=== PATIENT | female | born 1995 | race African-American/Black ===

== ENCOUNTER 2019-09-18 07:50 | Emergency (ER) | payer SELFPAY ==
[~2019-09-18] VITALS: Ht 165.1 cm; Wt 65.8 kg
[2019-09-18] MEDS ORDERED: OLANZAPINE 10 MG VIAL IM ONE ×2 (08:00→08:05)
[2019-09-18] MEDS ORDERED: LORAZEPAM INJ 2 MG/ML VIAL IM ONE (08:00)
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
[2019-09-18] MEDS ORDERED: LORAZEPAM INJ 2 MG/ML VIAL ONE (08:05)
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
[2019-09-18 08:20] LABS: BASOPHILS # (AUTO) 0.1 /CMM (0.0-0.2); BASOPHILS % (AUTO) 0.7 % (0.0-2.0); EOSINOPHILS % (AUTO) 1.3 % (0.0-6.0); HEMATOCRIT 40 % (33-45); HEMOGLOBIN 13.4 g/dL (11.5-14.8); LYMPHOCYTES # (AUTO) 3.5 /CMM (0.8-4.8); LYMPHOCYTES % (AUTO) 41.6 % (20.0-44.0); MEAN CORPUSCULAR HGB CONC 34 g/dl (31.0-36.0); MEAN CORPUSCULAR VOLUME 94 fL (82-100); MONOCYTES # (AUTO) 0.6 /CMM (0.1-1.30); MONOCYTES % (AUTO) 6.9 % (2.0-12.0); NEUTROPHILS # (AUTO) 4.2 /CMM (1.8-8.9); NEUTROPHILS % (AUTO) 49.5 % (43.0-81.0); PLATELET COUNT (AUTO) 227 /CMM (150-450); RED BLOOD CELL COUNT(AUTO) 4.27 MIL/uL (4.0-5.2); WHITE BLOOD COUNT (AUTO) 8.5 K/uL (4.3-11.0)
[2019-09-18 08:27] LABS: CALCIUM, SERUM 8.9 mg/dL (8.5-10.1); CREATININE 1.1 mg/dL (0.6-1.3); POTASSIUM 3.4 mmol/L (3.5-5.1)
[2019-09-18 08:40] LABS: ALBUMIN 3.8 g/dL (3.4-5.0); BILIRUBIN,DIRECT 0.1 mg/dL (0.0-0.2); BILIRUBIN,TOTAL 0.3 mg/dL (0.2-1.0); SALICYLATE 1.2 mg/dL (2.8-20.0); TOTAL PROTEIN, SERUM 7.5 g/dL (6.4-8.2)
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
--- NOTE | 2019-09-18 10:00 | NUR ---
POLICE OFFICERS LEFT A BUSINESS CARD, TO GIVE THEM A CALL BACK ONCE PATIENT IS AWAKE.
--- NOTE | 2019-09-18 10:36 | NUR ---
PATIENT ASLEEP, NO DISTRESS NOTED. VITALS STABLE.
--- NOTE | 2019-09-18 14:41 | NUR ---
PATIENT ASLEEP, NO DISTRESS NOTED.
--- NOTE | 2019-09-18 19:00 | NUR ---
Patient asleep, no distress noted.
--- NOTE | 2019-09-18 19:22 | NUR ---
endorsed to geena trujillo.
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
--- NOTE | 2019-09-18 19:34 | NUR ---
CALLED AND UPDATED [employer] THAT PT IS AWAKE AND WILLING TO SPEAK TO OFFICERS. WAS TOLD THEY WILL SEND OFFICERS TO THE ED TO INTERVIEW PATIENT.
--- NOTE | 2019-09-18 20:33 | NUR ---
[employer] AT BEDSIDE
--- NOTE | 2019-09-18 20:38 | NUR ---
OFFICER LOLA [id number] AND OFFICER ARCENIO [id number] AT BEDSIDE, PT REFUSING TO ANSWER QUESTIONS. REQUESTING TO CALL BACK [employer] ONCE AWAKE AND WILLING TO ANSWER QUESTIONS.
--- NOTE | 2019-09-18 21:44 | NUR ---
PT AWAKE, DOES NOT WANT TO SPEAK OR COOPERATE. DENIES PAIN, RR EVEN AND UNLABORED, VSS.
[2019-09-18 23:02] VITALS: BP 121/75
--- NOTE | 2019-09-18 23:02 | NUR ---
Patient discharged to home in stable condition. Written and verbal after care instructions given. Patient refused to sign.
== END 2019-09-18 23:03 | disposition home or self-care (01) ==
LOC: EDBD 07:53 → ER 07:53
DX: F29 Unspecified psychosis not due to a substance or known physiological condition (principal); F19.10 Other psychoactive substance abuse, uncomplicated; R00.0 Tachycardia, unspecified; R45.1 Restlessness and agitation
CPT/HCPCS: 36415; 80048; 80076; 80307; 80329; 84702; 85025; 96372 ×2; 99285; G0480; J2060; J3490